=== PATIENT | female | born 1990 ===

== ENCOUNTER 2022-01-27 12:36 | Outpatient (REF) | payer BC, SELFPAY ==
--- NOTE | ~2022-01-27 | MR_ITS ---
EXAMINATION: MR LUMBAR SPINE WITHOUT CONTRAST CLINICAL INFORMATION: Right lower extremity radicular symptoms. COMPARISON: None. TECHNIQUE: Multiplanar, multisequence imaging was obtained. Slightly limited study with motion artifacts. FINDINGS: VERTEBRAL BODIES AND PARASPINAL STRUCTURES: The marrow signal is homogeneous. There are no compression fractures. The discs are well hydrated. No anterior subluxations are visible. The paraspinal soft tissues are unremarkable. CONUS MEDULLARIS AND CAUDA EQUINE: The distal cord, conus tip, and cauda equina nerve roots are normal. SPINAL LEVELS: L1-L2: No disc pathology, central canal stenosis, or foraminal narrowing. L2-L3: Very mild facet arthropathy. No disc pathology. Patent central canal and foramina. L3-L4: Vjhz-[id number]-deacuaoy facet arthropathy and slight posterior subluxation. No disc pathology or central canal stenosis. Patent foramina. L4-L5: Moderate facet arthropathy and very mild disc bulge with mild central canal stenosis and mild bilateral foraminal narrowing. L5-S1: Mild facet arthropathy. No disc abnormality. No central canal stenosis or foraminal encroachment. Small 6 mm synovial cyst visible in the soft tissues posterior to the left L5 lamina. MR/MR lumbar spine wo con IMPRESSION: Slightly limited examination with motion artifacts. Moderate facet arthropathy and mild disc bulge at the L4-L5 level with mild central canal stenosis and foraminal narrowing. Milder facet degeneration at the L3-L4 and L5-S1 levels without foraminal encroachment.
== END 2022-01-27 12:37 | disposition home or self-care (01) ==
LOC: HO.MRI 12:36
PROVIDERS: Visit Provider Nurse Practitioner Family
DX: R20.0 Anesthesia of skin (principal); R20.2 Paresthesia of skin; R25.3 Fasciculation
CPT/HCPCS: 72148

== ENCOUNTER → 2022-03-10 14:23 | Outpatient (BNVA) | payer BC, SELFPAY | PROVIDERS: PCP Internal Medicine Rheumatology; Visit Provider Nurse Practitioner Family | DX: R20.0 Anesthesia of skin (principal) ==